=== PATIENT | male | born 1935 ===

== ENCOUNTER 2024-01-27 12:14 | Outpatient (CLI) | payer OTHER, SELFPAY ==
--- NOTE | 2024-01-27 16:34 | P.PCNPFT_ITS ---
PFT Procedure Performed PFT Procedure Performed Spirometry with Pre/Post Bronchodilator Plethysmography (Lung Vol) Diffusing Cap (DLCO) Flow Vol Loop PFT Interpretation This is a pulmonary function test with pre and post-bronchodilator spirometry, plethysmography and diffusing capacity. The test was performed and results interpreted in accordance with the 2019 and 2005 ATS/ERS Task Force guidelines respectively using the Global Lung Function Initiative-2012 reference equations. Patient demonstrated good effort and cooperation. Reproducibility criteria were met. The quality of the pre bronchodilator spirometry maneuver was Grade A and post bronchodilator spirometry maneuver was Grade B. Findings: Spirometry: There is decreased maximal expiratory airflow at all lung volumes with concave expiratory flow tracing. The contour the inspiratory flow tracing is normal. The pre bronchodilator FVC is 3.45 L, 107% predicted. The pre bronchodilator FEV1 is 2.15 L, 91% predicted. The pre bronchodilator FEV1: FVC ratio 62%. The post bronchodilator FVC is 3.98 L, representing a 15% increase. The post bronchodilator FEV1 is 2.06 L, representing a 5% decrease. The post bronchodilator FEV1: FVC ratio is 52%. Plethysmography: The total lung capacity is 6.57 L, 103% predicted. The functional residual capacity is 4.95 L, 134% predicted. The residual volume is 3.12 L, 118% predicted. Diffusing capacity: The diffusing capacity unadjusted for hemoglobin and carboxyhemoglobin is 12.6, 55% predicted. The diffusing capacity adjusted for alveolar volume is 2.64, 78% predicted. Impression: There is a mild obstructive abnormality with a normal FEV1. There is significant improvement after inhaling a single dose of albuterol. The lung volumes are normal. The diffusing capacity unadjusted for hemoglobin and carboxyhemoglobin is moderately decreased and normalizes when adjusted for alve olar volume. There are no prior studies for comparison
== END 2024-01-27 12:15 | disposition home or self-care (01) ==
LOC: ANHPFT 12:16
DX: C34.92 Malignant neoplasm of unspecified part of left bronchus or lung (principal); R94.2 Abnormal results of pulmonary function studies
CPT/HCPCS: 94060; 94726; 94729

== ENCOUNTER 2024-01-30 15:00 | Outpatient (CLI) | payer OTHER, SELFPAY ==
--- NOTE | ~2024-01-30 | MR_ITS ---
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 TECHNIQUE: Magnetic resonance imaging (MRI) of the brain and brainstem was performed without and with 14 mL MultiHance intravenous contrast. COMPARISON: None. FINDINGS: There are scattered areas of nonspecific increased T2-weighted signal intensity in the cere bral white matter and emily. There is no intracranial hemorrhage, acute infarction, or abnormal intrac ranial mass lesion. The ventricles are normal in size. The orbits are normal. The paranasal sinuses a re clear. The mastoid air cells are normal. IMPRESSION: 1. No evidence of metastatic disease. 2. Moderate nonspecific cerebral white matter disease and pontine disease, which likely represents ch ronic small vessel ischemic disease. Reviewed, dictated and finalized at location E. [facility] IMPRESSION: 1. No evidence of metastatic disease. 2. 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
== END 2024-01-30 15:01 | disposition home or self-care (01) ==
LOC: ANHIMG 15:01
DX: C34.92 Malignant neoplasm of unspecified part of left bronchus or lung (principal); R90.82 White matter disease, unspecified
CPT/HCPCS: 70553; A9577